=== PATIENT | male | born 1955 | race Caucasian/White ===

== ENCOUNTER 2016-11-16 14:34 | Emergency (ER) | payer OTHER ==
[~2016-11-16] VITALS: Ht 180.3 cm; Wt 84.8 kg
--- NOTE | 2016-11-16 15:00 | ED ANKLE/FOOT INJURY COMPLAINT ---
History of Present Illness General Chief Complaint: Lower Extremity Problems Stated Complaint: LEG AND FOOT PAIN AND SWELLING Source: patient Exam Limitations: no limitations Vital Signs & Intake/Output Vital Signs & Intake/Output Vital Signs Date Time Temp Pulse Resp B/P Pulse O2 O2 Flow FiO2 Ox Delivery Rate 11/16 1650 97.0 66 135/75 99 11/16 1439 97.8 65 20 137/84 96 Room Air ED Intake and Output 11/17 0000 11/16 1200 Intake Total Output Total Balance Patient 187 lb Weight Allergies Coded Allergies: No Known Allergies (11/16/16) Reconcile Medications Brimonidine Tartrate (Alphagan P) 0.15 % DROPS 1 GTT OPH BID EYE (Reported) Cephalexin (Keflex) 500 MG CAPSULE 1 CAP PO TID INFECTION Dorzolamide HCl/Timolol Maleat (Dorzolamide-Timolol Eye Drops) 22.3 MG-6.8 MG/ML DROPS 1 GTT OPH BID EYE (Reported) Indomethacin 25 MG CAPSULE 1 CAP PO TID PRN PAIN with food Metformin HCl 500 MG TABLET 1 TAB PO DAILY DIABETES (Reported) Pravastatin Sodium 10 MG TABLET 1 TAB PO DAILY CHOLESTEROL (Reported) Triage Note: PT TO ED C/O B/L ANKLE/FOOT SWELLING X 3 DAYS. PT ALSO STATES FEET ARE RED IN COLOR. PT STATES FEET ARE WARM TO TOUCH. DENIES FEVERS AT HOME, AFEBRILE. Triage Nurses Notes Reviewed? yes Duration: day(s): (4) Timing: recent history Severity: moderate Pain/Injury Location: Bilateral: Foot. Method of Injury: NONE Modifying Factors: Worsens With: movement, other (WALKING). Associated Symptoms: swelling, redness HPI: This is a 61-year-old male with history of diabetes who presents to the ER with chief complaint of 4 day history of bilateral foot pain. He denies any trauma. He states that it hurts to walk. He has areas of redness and swelling that he ever had before. He denies any fever, chills, chest pain or shortness of breath. He did not take anything at home for pain. Past History Travel History Traveled to [place] past 21 day No Medical History Any Pertinent Medical History? see below for history Endocrine: diabetes Surgical History Surgical History: non-contributory Psychosocial History What is your primary language Bhutanese Tobacco Use: Quit >30 days ago ETOH Use: denies use Illicit Drug Use: denies illicit drug use Family History Hx Contributory? No Review of Systems Review of Systems Constitutional: Denies: chills, fever. EENTM: Reports: no symptoms. Respiratory: Denies: cough, short of breath. Cardiovascular: Denies: chest pain, palpitations. GI: Denies: abdominal pain. Genitourinary: Reports: no symptoms. Musculoskeletal: Reports: no symptoms. Skin: Reports: see HPI (SWELLING), erythema. Neurological/Psychological: Denies: numbness, tingling, weakness. Hematologic/Endocrine: Denies: bruising, bleeding, polyuria, polydipsia. Immunologic/Allergic: Denies: splenectomy. All Other Systems: Reviewed and Negative Physical Exam Physical Exam General Appearance: well developed/nourished, alert, awake, anxious, mild distress Head: atraumatic Eyes: Bilateral: PERRL, EOMI. Ears, Nose, Throat: normal pharynx, normal ENT inspection, hearing grossly normal Neck: normal inspection, supple Cardiovascular/Respiratory: regular rate/rhythm Gastrointestinal: SOFT NONTENDER Back: normal inspection Leg/Knee/Thigh Left: normal range of motion, normal inspection Leg/Knee/Thigh Right: normal range of motion, normal inspection, swelling Ankle Left: normal inspection, normal range of motion Ankle Right: normal inspection, normal range of motion Foot Left: soft tissue tenderness (LEFT 1ST MCP), swelling Foot Right: soft tissue tenderness, swelling Neuro/Vascular: normal motor function, normal sensation Tendon: normal tendon function Psychiatric: awake, alert, oriented x 3 Skin: intact, normal color, warm/dry Diagram Feet Left/Right: 1) SLIGHT ERYTHEMA Feet Top: 1) TENDER, SWOLLEN Progress Differential Diagnosis: DVT, cellulitis, gout Plan of Care: Orders Procedure Date/time Status URIC ACID 11/16 1500 Complete COMPREHENSIVE METABOLIC PANEL 11/16 1456 Complete CBC WITHOUT DIFFERENTIAL 11/16 1456 Complete Laboratory Tests 11/16/16 1510: Uric Acid 6.3 11/16/16 1510: Anion Gap 15, Estimated GFR > 60, BUN/Creatinine Ratio 18.2, Glucose 104 H, Calcium 9.4, Total Bilirubin 0.5, AST 24, ALT 35, Alkaline Phosphatase 56, Total Protein 7.2, Albumin 4.0, Globulin 3.2, Albumin/Globulin Ratio 1.3, CBC w Diff NO MAN DIFF REQ, RBC 4.38 L, MCV 91.9, MCH 30.8, RDW 13.4, MPV 8.4, Gran % 82.8 H, Lymphocytes % 9.6 L, Monocytes % 5.3, Eosinophils % 2.1, Basophils % 0.2, Absolute Granulocytes 7.6 H, Absolute Lymphocytes 0.9 L, Absolute Monocytes 0.5, Absolute Eosinophils 0.2, Absolute Basophils 0, PUBS MCHC 33.5 4:03 PM He shouldn't resting comfortably still awaiting ultrasound. (EDITH SALCEDO,TOBIAS) Diagnostic Imaging: Viewed by Me: Ultrasound. Discussed w/RAD: Ultrasound. Radiology Impression: PATIENT: KEYON SANDOVAL PRESENT AGE: 61 PATIENT ACCOUNT NO: [id number] : 54 LOCATION: [facility] ORDERING PHYSICIAN: TOBIAS SHARMA MD SERVICE DATE: 11/16/16 EXAM TYPE: US - US- UNILATERAL VENOUS DOPPLER EXAMINATION: US TRIPLEX LOWER EXTREMITY, RIGHT CLINICAL INFORMATION: Right leg pain, swelling. COMPARISON: None. TECHNIQUE: Color-flow triplex imaging with spectral analysis and compression Doppler were performed on the right lower extremity. FINDINGS: Respiratory variation, normal compression and augmented flow are noted throughout the lower extremity. The visualized common femoral vein, superficial femoral vein, profunda femoral vein, popliteal vein and mid calf peroneal and posterior tibial venous segments show no evidence of deep venous thrombosis. There is no Kennedy's cyst. IMPRESSION: Normal triplex scan without evidence of deep venous thrombosis involving the right lower extremity. DICTATED BY: LEANDRA YOON MD DATE/TIME DICTATED:1650 BRAILLE CODER:LEIGHTON DATE/TIME TRANSCRIBED:11/16/161650 CONFIDENTIAL, DO NOT COPY WITHOUT APPROPRIATE AUTHORIZATION. <Electronically signed in Other Vendor System> SIGNED BY: LEANDRA YOON MD 11/16/163 Departure Departure Time of Disposition: 1706 Disposition: HOME OR SELF CARE Condition: Stable Clinical Impression Primary Impression: Gout Additional Instructions: TAKE THE INDOCIN AND KEFLEX DIRECTED. FOLLOW UP WITH YOUR DOCTOR IN THE OFFICE. RETURN TO THE ER FOR ANY CHANGING OR WORSENING SYMPTOMS. Departure Forms: Customer Survey General Discharge Information Prescriptions: Current Visit Scripts Indomethacin 1 CAP PO TID PRN PAIN #30 CAP with food Cephalexin (Keflex) 1 CAP PO TID #30 CAP
[2016-11-16] MEDS ORDERED: METFORMIN HCL500 M3 PO (15:32)
[2016-11-16] MEDS ORDERED: PRAVASTATIN SOD10 M2 PO (15:32)
[2016-11-16] MEDS ORDERED: DORZOLAMIDE-TIM10 ML OPH (15:33)
[2016-11-16] MEDS ORDERED: ALPHAGAN P5 ML OPH (15:33)
[2016-11-16 15:40] LABS: ABSOLUTE BASOPHIL COUNT 0 /CUMM (0.0-0.2); ABSOLUTE EOSINOPHIL COUNT 0.2 /CUMM (0.0-0.7); ABSOLUTE GRANULOCYTE CT 7.6 /CUMM (1.4-6.5); ABSOLUTE LYMPH COUNT 0.9 /CUMM (1.2-3.4); ABSOLUTE MONOCYTE COUNT 0.5 /CUMM (0.10-0.60); BASOPHIL % 0.2 % (0.0-2.0); EOSINOPHIL % 2.1 % (0-5); GRANULOCYTE % 82.8 % (42.2-75.2); HEMATOCRIT 40.3 % (42-52); MEAN CORPUSCULAR HGB 30.8 PG (27.0-31.0); MEAN CORPUSCULAR HGB CONC 33.5 G/DL (33.0-37.0); MEAN CORPUSCULAR VOLUME 91.9 FL (80.0-94.0); MEAN PLATELET VOLUME 8.4 FL (7.4-10.4); PLATELET COUNT 280 /CUMM (130-400); RBC DISTRIBUTION WIDTH 13.4 % (11.5-14.5); RED BLOOD CELL CT 4.38 /CUMM (4.70-6.10); WHITE BLOOD CELL COUNT 9.2 /CUMM (4.8-10.8)
[2016-11-16 16:50] VITALS: BP 135/75
--- NOTE | 2016-11-16 16:55 | ULTRASOUND REPORT ---
EXAMINATION: US TRIPLEX LOWER EXTREMITY, RIGHT CLINICAL INFORMATION: Right leg pain, swelling. COMPARISON: None. TECHNIQUE: Color-flow triplex imaging with spectral analysis and compression Doppler were performed on the right lower extremity. FINDINGS: Respiratory variation, normal compression and augmented flow are noted throughout the lower extremity. The visualized common femoral vein, superficial femoral vein, profunda femoral vein, popliteal vein and mid calf peroneal and posterior tibial venous segments show no evidence of deep venous thrombosis. There is no Kennedy's cyst. IMPRESSION: Normal triplex scan without evidence of deep venous thrombosis involving the right lower extremity.
[2016-11-16] MEDS ORDERED: KEFLEX500 M1 PO (17:15)
[2016-11-16] MEDS ORDERED: INDOMETHACIN25 M1 PO (17:15)
== END 2016-11-16 17:40 ==
LOC: ERH 14:34
PROVIDERS: Emergency Medicine
DX: M10.9 Gout, unspecified (principal)